=== PATIENT | female | born 1990 | race Hispanic/Latino ===

== ENCOUNTER 2017-02-15 20:17 | Emergency (ER) | payer BC ==
[2017-02-15 20:46] VITALS: BP 143/87; PULSE 70; RESP 18; TEMP 98; O2SAT 99
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
== END 2017-02-15 22:34 | disposition home or self-care (01) ==
LOC: H.ER 20:17
DX: Z77.21 Contact with and (suspected) exposure to potentially hazardous body fluids (principal)

== ENCOUNTER 2017-12-02 17:05 | Emergency (ER) | payer OTHER, BC ==
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
[2017-12-02] MEDS ORDERED: Emtricitabine-Tenofovir 200 mg-300 mg Tab PO STA (19:44)
[2017-12-02 21:29] VITALS: BP 124/78; PULSE 69; RESP 16; TEMP 98
[2017-12-02 23:00] VITALS: O2SAT 99
== END 2017-12-02 21:32 | disposition home or self-care (01) ==
LOC: H.ER 17:05
DX: Z04.41 Encounter for examination and observation following alleged adult rape (principal)